=== PATIENT | male | born 1975 | race Native Hawaiian/Other Pacific Islander ===

== ENCOUNTER 2018-04-24 20:15 | Emergency (ER) | payer OTHER ==
[~2018-04-24] VITALS: Ht 167.6 cm; Wt 122.9 kg
[~2018-04-24 20:15] MED LIST: DIOVAN HC1 PO; NEURONTIN 100M100 MG PO
[2018-04-25 00:28] VITALS: BP 141/137; TEMP 98.5
== END 2018-04-25 00:29 | disposition home or self-care (01) ==
LOC: ED 20:15
DX: S62.634A Displaced fracture of distal phalanx of right ring finger, initial encounter for closed fracture (principal); W23.0XXA Caught, crushed, jammed, or pinched between moving objects, initial encounter; Y92.89 Other specified places as the place of occurrence of the external cause
CPT/HCPCS: 99283; J1885

== ENCOUNTER 2018-12-11 03:55 | Emergency (ER) | payer OTHER ==
[~2018-12-11] VITALS: Ht 167.6 cm; Wt 115.7 kg
[2018-12-11 04:17] LABS: PLATELET COUNT 209 K/uL (142-355)
[2018-12-11 04:38] LABS: POTASSIUM 3.7 mmol/L (3.6-5.2); SODIUM 135 mmol/L (136-145)
[2018-12-11] MEDS ORDERED: METF500T PO (05:25)
[2018-12-11] MEDS ORDERED: CYCL10TA35 PO (05:25)
[2018-12-11 05:55] VITALS: BP 143/87; TEMP 98.1
== END 2018-12-11 05:55 | disposition home or self-care (01) ==
LOC: ED 03:57
PROVIDERS: Emergency Medicine
DX: T78.49XA Other allergy, initial encounter (principal); J98.01 Acute bronchospasm; E11.65 Type 2 diabetes mellitus with hyperglycemia; I45.81 Long QT syndrome
CPT/HCPCS: 36415; 36600; 80053; 82550; 82805; 83735; 84484; 85027; 85379; 93005; 94664; 96360; 96375; 99284; J1200; J2930

== ENCOUNTER 2019-10-27 18:56 | Emergency (ER) | payer OTHER ==
[~2019-10-27] VITALS: Ht 167.6 cm; Wt 115.7 kg
[~2019-10-27 18:56] MED LIST changes: +CYCL10TA35 PO; +METF500T PO
[2019-10-27 22:00] VITALS: BP 149/81; TEMP 99.9
== END 2019-10-27 22:00 | disposition home or self-care (01) ==
LOC: ED 18:56
DX: M54.42 Lumbago with sciatica, left side (principal); M54.41 Lumbago with sciatica, right side
CPT/HCPCS: 96372; 99283; J1885; J2360